=== PATIENT | male | born 1995 | race Caucasian/White ===

== ENCOUNTER 2020-04-27 14:32 | Outpatient (CLI) | payer OTHER, SELFPAY ==
[2020-04-27 15:58] LABS: Viscosity Semen Normal; Volume Semen 4.5 mL (2-5)
[2020-04-27 15:59] LABS: Red Blood Count Semen 0-4 /hpf; Sperm Immotility 50 % (50-60); Sperm Progressive Motility 50 % (31-34); White Blood Count Semen 0-4 /hpf
[2020-04-27 20:02] LABS: Pathology Referral Yes; Side 1 436; Side 2 393
== END 2020-04-27 14:33 | disposition home or self-care (01) ==
PROVIDERS: Visit Provider Obstetrics & Gynecology
DX: N46.9 Male infertility, unspecified (principal)
CPT/HCPCS: 80500; 89320

== ENCOUNTER → 2022-01-16 10:41 | Outpatient (BNVA) | payer OTHER, SELFPAY | PROVIDERS: PCP Registered Nurse; Visit Provider Registered Nurse | DX: Z13.6 Encounter for screening for cardiovascular disorders (principal) | CPT/HCPCS: 80053; 80061 ==

== ENCOUNTER → 2024-09-06 07:52 | Outpatient (BNVA) | payer OTHER, SELFPAY | PROVIDERS: PCP Registered Nurse; Visit Provider Registered Nurse | DX: E34.9 Endocrine disorder, unspecified (principal) | CPT/HCPCS: 80053; 80061; 83001; 83002; 84146; 84403; 84439; 84443; 85025 ==

== ENCOUNTER → 2024-09-09 10:06 | Outpatient (BNVA) | payer OTHER, SELFPAY | PROVIDERS: PCP Registered Nurse; Visit Provider Internal Medicine | DX: E34.9 Endocrine disorder, unspecified (principal) | CPT/HCPCS: 84153; 84403; 84439 ==